=== PATIENT | female | born 1995 | race Caucasian/White ===

== ENCOUNTER 2017-12-12 19:06 | Emergency (ER) | payer SELFPAY ==
--- NOTE | 2017-12-12 19:57 | ED.PDOC ---
History of Present Illness - General Chief Complaint: GI Problem Stated Complaint: blood in stool, LLQ pain Time Seen by Provider: 12/12/17 19:31 Source: patient Exam Limitations: no limitations - History of Present Illness Initial Comments: Ele Tejeda 22 y/o female came to emergency room with blood in stool after bowel movement for the last one week.No hematemesis.Has abdominal cramps,no diarrhea or constipation.No fever/chills.Stated she was able to eat w/o abdominal pain. Timing/Duration: other - one week Severity: moderate Improving Factors: nothing Worsening Factors: nothing Presenting Symptoms: bloody stools Allergies/Adverse Reactions: Allergies NO KNOWN ALLERGY Allergy (Verified 03/08/15 21:02) Home Medications: Ambulatory Orders NK [NK] 12/12/17 Review of Systems - Review of Systems Constitutional: States: no symptoms reported EENTM: States: no symptoms reported Respiratory: States: no symptoms reported Cardiology: States: no symptoms reported Gastrointestinal/Abdominal: States: see HPI Genitourinary: States: no symptoms reported All other Systems: Reviewed and Negative, No Change from Baseline Past Medical History (General) - Patient Medical History Hx Diabetes: No Hx Renal Disease: No Surgical History: no surgical history - Vaccination History Hx Tetanus, Diphtheria Vaccination: No Hx Influenza Vaccination: No - Social History Hx Tobacco Use: No Hx Alcohol Use: No Hx Substance Use: No Hx Substance Use Treatment: No Hx Depression: No Hx Physical Abuse: No Hx Emotional Abuse: No Hx Suspected Abuse: No - Female History Patient is a Female of Child Bearing Age (10 -59 yrs old): Yes Hx Last Menstrual Period: 05/31/14 - Has Mirena IUD for 2 years Patient : No Expected Date of Delivery:: 03/15/15 - Triage Comment ED Triage Comment: blood noted in stool for past week, pain to LLQ, worse with BMs Physical Exam - Physical Exam General Appearance: active, no apparent distress HEENT: TMs normal, nose normal, pharynx normal Neck: full range of motion, supple Respiratory: lungs clear, normal breath sounds Cardiovascular/Chest: regular rate, rhythm, no edema, no murmur Gastrointestinal/Abdominal: normal bowel sounds, non tender, soft, no organomegaly Genital/Rectal: heme positive stool Extremities Exam: non-tender, no evidence of injury Neurologic: alert, oriented x 3 Skin Exam: normal color, warm/dry Progress - Progress Progress: 12/12/17 20:11 Last Vital Signs Temp 98.2 F 12/12/17 19:26 Pulse 88 12/12/17 19:26 Resp 18 12/12/17 19:26 BP 129/74 12/12/17 19:26 Pulse Ox 98 12/12/17 19:26 - Results/Orders Results/Orders: Laboratory Tests 12/12/17 12/12/17 12/12/17 20:16 20:16 20:16 WBC 9.0 RBC 4.73 Hgb 13.9 Hct 40.9 MCV 86.6 MCH 29.3 MCHC 33.9 RDW 12.7 Plt Count 218 MPV 10.1 Absolute Neuts (auto) 4.80 Absolute Lymphs (auto) 3.10 Absolute Monos (auto) 0.70 Absolute Eos (auto) 0.40 Absolute Basos (auto) 0.00 Neutrophils % 53.6 Lymphocytes % 34.7 Monocytes % 7.3 Eosinophils % 4.0 Basophils % 0.4 Sodium 136 Potassium 3.9 Chloride 101 Carbon Dioxide 28 Anion Gap 10.9 L BUN 9 Creatinine 0.61 BUN/Creatinine Ratio 14.8 Random Glucose 98 Serum Osmolality 270.6 L Calcium 9.3 Total Bilirubin 0.4 AST 17 ALT 30 Alkaline Phosphatase 63 Serum Total Protein 6.9 Albumin 3.8 Globulin 3.1 Albumin/Globulin Ratio 1.2 Urine Color Urine Appearance Urine pH Ur Specific [place] Urine Protein Urine Glucose (UA) Urine Ketones Urine Blood Urine Nitrite Urine Bilirubin Urine Urobilinogen Ur Leukocyte Esterase Urine RBC Urine WBC Ur Epithelial Cells Amorphous Sediment Urine Bacteria Urine Mucus Stool Occult Blood Positive 12/12/17 20:16 WBC RBC Hgb Hct MCV MCH MCHC RDW Plt Count MPV Absolute Neuts (auto) Absolute Lymphs (auto) Absolute Monos (auto) Absolute Eos (auto) Absolute Basos (auto) Neutrophils % Lymphocytes % Monocytes % Eosinophils % Basophils % Sodium Potassium Chloride Carbon Dioxide Anion Gap BUN Creatinine BUN/Creatinine Ratio Random Glucose Serum Osmolality Calcium Total Bilirubin AST ALT Alkaline Phosphatase Serum Total Protein Albumin Globulin Albumin/Globulin Ratio Urine Color Yellow Urine Appearance Clear Urine pH 7.0 Ur Specific [place] 1.020 Urine Protein Negative Urine Glucose (UA) Negative Urine Ketones Negative Urine Blood Trace-lysed H Urine Nitrite Negative Urine Bilirubin Negative Urine Urobilinogen 0.2 Ur Leukocyte Esterase Trace H Urine RBC 0-1 Urine WBC 1-3 Ur Epithelial Cells 3-5 Amorphous Sediment 1+ Urine Bacteria 1+ Urine Mucus Trace Stool Occult Blood Departure - Departure Clinical Impression: Lower gastrointestinal bleeding, Left groin pain Time of Disposition: 20:55 Disposition: Discharge to Home or Self Care Condition: Good Departure Forms: ED Discharge - Pt. Copy, Patient Portal Self Enrollment Instructions: DI for Gastrointestinal Bleeding Diet: other Home Medications: Ambulatory Orders NK [NK] 12/12/17 Additional Instructions: Need to sign up with primary Md of choice and make appointment in am 12/13/2017
[2017-12-12 21:12] VITALS: BP 122/78; TEMP 98; O2SAT 99
== END 2017-12-12 21:11 | disposition home or self-care (01) ==
LOC: ER 19:06
DX: K92.2 Gastrointestinal hemorrhage, unspecified (principal)